=== PATIENT | female | born 1980 | race Caucasian/White ===

== ENCOUNTER 2022-05-18 02:02 | Emergency (ER) | payer OTHER, SELFPAY ==
[2022-05-18 02:03] VITALS: BP 134/83; PULSE 96; RESP 17; TEMP 36.7; O2SAT 98; BMI 32.5
--- NOTE | 2022-05-18 02:19 | EDS_ITS ---
HPI HPI - GI History of Present Illness Chief Complaint: Abd Pain Narrative Narrative: 41-year-old female with acute, sharp, left lower quadrant pain. She states it was an 8 of 10. She felt nauseous and a little lightheaded. She states the pain lasted for about 2 hours and is now letting up. She states she does not any pain currently. She took Tylenol earlier. No fevers or chills. No history of kidney stones. No urinary or vaginal complaints. She does have diarrhea but there is no new component to it. She has a history of ulcerative colitis. PFSH PFSH Home Medications calcium carbonate 500 mg-vitamin D3 10 mcg (400 unit) chewable tablet (Calcium 500 + D) 1,000 ea PO DAILY 01/14/15 [History Last Taken Unknown] levetiracetam 500 mg tablet 500 mg PO BID 01/14/15 [History Last Taken Unknown] multivitamin with folic acid 400 mcg tablet (Thera) 1 tab PO DAILY 01/14/15 [History Last Taken Unknown] hydrocodone-acetaminophen 5-325mg 5mg-325mg 1 tab PO Q6H PRN pain 3 days #10 TABLETS 05/18/22 [Rx Last Taken Unknown] Allergy/AdvReac Type Severity Reaction Status Date / Time lamotrigine [From Lamictal] Allergy Rash Verified 05/18/22 02:09 Social History Smoking Status: Never smoker ROS ROS ED Constitutional Constitutional ED: Denies chills, fever(s) or sweats Eyes Eyes: Denies blurry vision or change in vision ENT ENT ED: Denies ear pain or sore throat Cardiovascular Cardiovascular: Denies chest pain, palpitations or racing heartbeat Respiratory/Chest Respiratory/Chest: Denies cough, dyspnea or sputum Gastrointestinal Gastrointestinal: Reports abdominal pain and nausea; Denies constipation, diarrhea or vomiting Genitourinary Genitourinary ED: Denies dysuria, hematuria or urinary frequency Musculoskeletal Musculoskeletal: Denies arthralgias, myalgias or neck pain Integumentary Denies abscess, Abrasions or rash Neurologic Neurologic: Denies headache(s), paresthesias or weakness Psychiatric Psychiatric: Denies anxiety, depression, suicidal ideation or suicidal thoughts Endocrine Endocrinology: Denies polydipsia or polyuria EXAM Physical Exam Const Vital Signs: 05/18/22 02:03 Temperature 98.1 F Temperature Source Temporal Pulse Rate 96 Respiratory Rate 17 Blood Pressure 134/83 H Blood Pressure Mean 100 Pulse Ox 98 Oxygen Delivery Method Room Air Positive well nourished General Appearance ED: NAD; Negative for pallor HEENT Reports moist mucous membranes Eyes PERRL and EOMs intact bilaterally Neck no lymphadenopathy Resp normal respiratory effort Auscultation: Negative for rales, rhonchi or wheezes Cardio regular rate and regular rhythm GI non-tender and non-distended Back/Spine no CVA tenderness Neuro CN's II-XII intact bilaterally Sensorium / Orientation: alert Motor Exam: strength 5/5 throughout Psych mental status grossly normal Skin no wounds General Skin Exam: Negative for jaundice or pallor MDM MDM MDM Narrative Medical decision making narrative: Patient presenting with acute onset left lower abdominal pain. She does not have any CVA tenderness. Differential includes kidney stone ureteral calculi, diverticulitis, ovarian cyst, ovarian torsion. Patient states the pain is actually improving. She declines analgesia. Based on her description I do suspect she has a kidney stone. I obtained a urinalysis which showed 250 occult blood. CBC to assess white blood cell count, hemoglobin, platelets, differential. BMP to assess renal function, electrolytes, glucose, anion gap. CBC shows slight leukocytosis at 12.6. Hemoglobin stable at 12.2. No left shift. Creatinine 1.25 without any comparison. Potassium slight low at 3.4. CT of the abdomen pelvis without contrast was performed which shows a punctate left ureteral stone with mild hydronephrosis. Patient counseled on findings. She had not had return pain. I will give her follow-up with urology. I gave her [place] and Zofran for home. Return precautions discussed. Impression: 1. Left-sided kidney stone 2. Hydronephrosis 3. He was Lab Data Labs: Laboratory Results - last 24 hr 05/18/22 05/18/22 05/18/22 02:12 02:12 02:35 WBC 12.6 H RBC 3.69 L Hgb 12.2 Hct 37.8 MCV 102.4 H MCH 33.1 H MCHC 32.3 RDW Std Deviation 47.5 H RDW Coeff of Thuy 12.7 Plt Count 371 MPV 9.2 Immature Gran % (Auto) 0.500 Neut % (Auto) 58.1 Lymph % (Auto) 26.2 [place] % (Auto) 14.4 H Eos % (Auto) 0.6 Baso % (Auto) 0.2 Absolute Neuts (auto) 7.3 Absolute Lymphs (auto) 3.29 Nucleated RBC % 0 Differential Comment SCANNED Diff Path Review June foll Sodium 138 Potassium 3.4 L Chloride 106 Carbon Dioxide 28.0 Anion Gap 4 L BUN 22 H Creatinine 1.25 H Estim Creat Clear Calc 46.37 Est GFR (MDRD) Af Amer 60 Est GFR (MDRD) Non-Af 50 L BUN/Creatinine Ratio 17.6 Glucose 119 H Calcium 8.8 Urine Color Yellow Urine Clarity Sl. Cloudy Urine pH 5.0 Ur Specific [place] 1.020 Urine Protein 30 H Urine Glucose (UA) Normal Urine Ketones Negative Urine Occult Blood 250 H Urine Nitrite Negative Urine Bilirubin Negative Urine Urobilinogen Normal Ur Leukocyte Esterase 25 H Urine RBC > 100 SEEN Urine WBC 5-10 SEEN Ur Squamous Epith Cells 0-5 SEEN Urine Bacteria 1+ Urine Mucus 0 SEEN Radiography Diagnostic Testing: Clinical Impression(s) from Imaging Studies Abdomen/Pelvis CT 05/18/22 02:47 IMPRESSION: Punctate proximal left ureteral stone with mild hydronephrosis and perinephric inflammation. Additional residual left renal 2 mm stones. Electronically Signed: Moustapha Arevalo MD at 3:54 EDT Reading Location ID and State: [facility], [facility] / [place] Tel , Service support , Discharge Plan Triage Chief Complaint: Abd Pain ED Provider: Devin Borrero Dx/Rx/DC Orders Instructions: ED Kidney Stone w/ Colic Prescriptions: New hydrocodone-acetaminophen 5-325 mg tablet 1 tab PO Q6H PRN (Reason: pain) 3 Days Qty: 10 0RF No Action levetiracetam 500 MG tablet 500 mg PO BID calcium carbonate-vitamin D3 [Calcium 500 + D] 1 EACH tablet,chewable 1,000 ea PO DAILY multivitamin with folic acid [Thera] 1 TABLET tablet 1 tab PO DAILY Primary Care Provider: Alexis Quiros Referrals: Tianna Bess MD [Med Staff - Active Staff] - 3-5 Days Allen Leo DO [Non-Staff] - Disposition Disposition: Home, Self Care
[2022-05-18 02:24] LABS: Absolute Lymphocyte Count 3.29 X10^3/uL (0.83-4.51); Absolute Neutrophil Count 7.3 X10^3/uL (2.0-7.7); Basophil# 0.03 X10^3/uL; Basophil% 0.2 % (0-1); Eosinophil# 0.07 X10^3/uL; Eosinophils% 0.6 % (0-5); Hematocrit 37.8 % (37-47); Hemoglobin 12.2 g/dL (12.0-15.0); Lymphocyte # 3.29 X10^3/ul (0.83-4.51); Lymphocyte % 26.2 % (19-41); Mean Corp Hgb Conc 32.3 g/dL (32-36); Mean Corpuscular Hgb 33.1 pg (27.0-32.0); Mean Corpuscular Volume 102.4 fL (81-99); Mean Platelet Vol. 9.2 fl (6.2-12.0); Monocyte# 1.81 X10^3/uL; Monocyte% 14.4 % (0-10); NRBC Flagged by Analyzer 0 % (0-5); Neutrophil # 7.32 X10^3/uL (2.7-7.7); Neutrophil % 58.1 % (47-70); POSITIVE DIFFERENTIAL YES; Platelet Count 371 K/mm3 (150-450); RBC Distribution Width CV 12.7 % (11.6-14.6); RBC Distribution Width SD 47.5 fl (35.1-43.9); Red Blood Count 3.69 M/mm3 (4.2-5.4); White Blood Count 12.6 K/mm3 (4.4-11.0)
[2022-05-18 02:26] LABS: Differential Indicated SCAN CRITERIA MET
[2022-05-18 02:33] LABS: Differential Comment SCANNED
[2022-05-18 02:36] LABS: Anion Gap 4 (5-15); BUN 22 mg/dL (7-18); BUN/Creat Ratio 17.6 RATIO (10-20); Calcium,Total 8.8 mg/dL (8.5-10.1); Chloride 106 mmol/L (98-107); Creatinine, Serum 1.25 mg/dL (0.55-1.02); EST Glomerular Filtration Rate 50 mL/min (>60); Est Glom Filt Rate - Afr Amer 60 mL/min (>60); Estimated Creatinine Clearance 46.37 ml/min; Glucose 119 mg/dL (74-106); Potassium 3.4 mmol/L (3.5-5.1); Sodium Level 138 mmol/L (136-145)
[2022-05-18 02:40] LABS: Mucous, Urine 0 SEEN /hpf (<or=2+)
[2022-05-18 02:41] LABS: Color, Urine Yellow (Yellow); Glucose, Dipstick Normal (Normal); Ketone-Dipstick Negative (Negative); Leukocyte Esterase-Dipstick 25 /ul (Negative); Nitrite-Dipstick Negative (Negative); Occult Blood-Urine 250 /ul (Negative); Protein-Dipstick 30 mg/dl (Negative); Urine Bilirubin Dipstick Negative (Negative); Urine Clarity Sl. Cloudy (Clear); Urine Urobilinogen Normal (Normal)
--- NOTE | 2022-05-18 02:47 | CT_ITS ---
INDICATION: llq abdominal pain EXAMINATION: CT ABDOMEN AND PELVIS WITHOUT CONTRAST - CT Abdomen And Pelvis W/O Contrast Injection TECHNIQUE: Helically acquired images were obtained of the abdomen and pelvis without oral or IV contrast. A radiation dose optimization technique was used for this scan. IV Contrast dosage and agent: None. Oral contrast: None. COMPARISON: None. FINDINGS: LOWER CHEST: Lung bases are clear. No cardiomegaly or pericardial effusion. LIVER: Homogeneous. No focal mass. GALLBLADDER AND BILIARY TREE: No calcified gallstones. No gallbladder distension or wall edema. No intra- or extrahepatic biliary ductal dilation. PANCREAS: No focal cystic or solid mass. SPLEEN: Normal size without focal cystic or solid mass. ADRENAL GLANDS: No nodules. KIDNEYS AND URETERS: Multiple 2 mm left renal nonobstructive stones. Mild left hydronephrosis and renal enlargement with punctate 2 mm left proximal ureteral stone, axial image 84. No right nephrolithiasis or hydronephrosis. Mild left perinephric inflammation. PERITONEUM: No ascites or free air. No other fluid collection. BOWEL: No evidence of acute appendicitis. No stomach or bowel distension. No focal inflammatory change. LYMPH NODES: No enlarged mesenteric or retroperitoneal lymph nodes. VESSELS: Aorta is non-dilated. URINARY BLADDER: Unremarkable. REPRODUCTIVE ORGANS: Unremarkable uterus and adnexa.. ABDOMINAL WALL: No discrete abdominal or pelvic wall hernia. BONES: No lytic or blastic abnormality. CT/Abdomen/Pelvis without Cont IMPRESSION: Punctate proximal left ureteral stone with mild hydronephrosis and perinephric inflammation. Additional residual left renal 2 mm stones. Electronically Signed: Moustapha Arevalo MD at 3:54 EDT ,
[2022-05-18 02:53] LABS: Bacteria 1+ /hpf (None Seen); Red Blood Cells-Urine > 100 SEEN /hpf (0-5); Squamous Epithelial Cells - UA 0-5 SEEN /hpf (5-10); White Blood Cells 5-10 SEEN /hpf (0-5)
[2022-05-18] MEDS: 0.9% Normal Saline 1,000 ML 999 ML IV (03:07)
[2022-05-18 04:17] VITALS: PULSE 90; RESP 18; O2SAT 97
[2022-05-19 12:56] LABS: Pathologist Review Reviewed
== END 2022-05-18 04:33 | disposition home or self-care (01) ==
PROVIDERS: Emergency Provider Student in an Organized Health Care Education/Training Program; PCP Family Medicine; Visit Provider Student in an Organized Health Care Education/Training Program
DX: N13.2 Hydronephrosis with renal and ureteral calculous obstruction (principal); R19.7 Diarrhea, unspecified; R10.9 Unspecified abdominal pain
CPT/HCPCS: 74176; 80048; 81001; 85025; 99283; J7030; A4216